=== PATIENT | male | born 1980 | race African-American/Black ===

== ENCOUNTER 2019-10-30 02:35 | Emergency (ER) | payer OTHER ==
[~2019-10-30] VITALS: Ht 172.7 cm; Wt 88.9 kg
[2019-10-30 02:52] VITALS: BP 144/105
--- NOTE | 2019-10-30 02:55 | NUR ---
PT TAKEN TO BED 11
[2019-10-30 02:56] VITALS: BP 144/105
--- NOTE | 2019-10-30 02:56 | NUR ---
39M PRESENTS TO ED WITH C/O RUE PAIN AND STIFFNESS 10/10 THAT IS RADIATING TO RT UPPER BACK X 1 WEEK. PT STATES STARTED WHEN HE HAD A BAD STRETCH X 1 WEEK AGO. PAIN HAS PROGRESSIVELY GOTTEN WORSE AND 2100 LAST NIGHT WAS THE WORST PAIN. PT STATES TAKING 600MG IBUPROFEN AND 5MG CYCLOBENZAPRINE AT 2200 LAST NIGHT WITH NO PAIN RELIEF OR SPASM RELIEF. PT 5/5 ROM BUT HAS INCREASED PAIN. DENIES HEADACHE. DENIES BLURRY VISION. DENIES SOB/COUGH. DENIES N/V/D. RR EVEN AND UNLABORED. CBL SOUNDS. PT IS AMBULATORY AND A/O X 4. PMHX: DENIES RX: 600MG IBUPROFEN, CYCLOBENZAPRINE. NKA NEGATIVE FOR COVID SCREENING. PT WEARING MASK. PLACED FOR COMFORT WITH HOB ELEVATED.
--- NOTE | 2019-10-30 03:03 | NUR ---
Dr. Stokes examining patient.
[2019-10-30] MEDS ORDERED: KETOROLAC 60 MG/2 ML VIAL IM ONE (03:10)
--- NOTE | 2019-10-30 03:10 | NUR ---
PT TAKEN TO CT
--- NOTE | 2019-10-30 03:29 | NUR ---
PT MEDICATED WITH TORADOL IM FOR 10/10 PAIN. TOLERATED WELL. NADR
--- NOTE | 2019-10-30 03:51 | NUR ---
SHAYNA DOMÍNGUEZ AT BEDSIDE REEVALUATING PT.
--- NOTE | 2019-10-30 04:19 | NUR ---
PTS WAS GIVEN A SHOULDER SLING. ONCE ON PT, PT WANTED IT OFF INSTEAD BUT STILL TOOK IT HOME.
--- NOTE | 2019-10-30 04:21 | NUR ---
Patient discharged with v/s stable. Written and verbal after care instructions given and explained. Patient alert, oriented and verbalized understanding of instructions. Ambulatory with steady gait. All questions addressed prior to discharge. ID band removed. Patient advised to follow up with PMD. Rx of tramadol and motrin given. Patient educated on indication of medication including possible reaction and side effects. Opportunity to ask questions provided and answered.
--- NOTE | 2019-10-30 04:21 | NUR ---
pt unable to tolerate pain with sling.
== END 2019-10-30 04:21 | disposition home or self-care (01) ==
LOC: MED 02:35
DX: S29.8XXA Other specified injuries of thorax, initial encounter (principal); X58.XXXA Exposure to other specified factors, initial encounter; Y93.89 Activity, other specified; Y92.89 Other specified places as the place of occurrence of the external cause; Y99.8 Other external cause status
CPT/HCPCS: 71250; 96372; 99284; J1885